=== PATIENT | male | born 1990 | race Caucasian/White ===

== ENCOUNTER 2022-08-02 07:58 | Outpatient (CLI) | payer OTHER | END 2022-08-02 07:59 | disposition home or self-care (01) | LOC: CSHCT 07:58 | PROVIDERS: ATTEND Family Medicine | DX: R19.8 Other specified symptoms and signs involving the digestive system and abdomen (principal); K76.0 Fatty (change of) liver, not elsewhere classified; N20.0 Calculus of kidney | CPT/HCPCS: 74177 ==